=== PATIENT | female | born 1980 | race Caucasian/White ===

== ENCOUNTER → 2017-05-31 | Outpatient (CLI) | payer OTHER | LOC: M LRY 11:13 | DX: J40 Bronchitis, not specified as acute or chronic (principal) | CPT/HCPCS: G0463 ==

== ENCOUNTER → 2018-04-19 | Outpatient (REF) | payer OTHER | LOC: M SFHCLERA 14:59 | PROVIDERS: ATTEND Nurse Practitioner Family | DX: R42 Dizziness and giddiness (principal) ==

== ENCOUNTER 2018-12-12 08:32 | Emergency (ER) | payer OTHER ==
[~2018-12-12] VITALS: Ht 167.6 cm; Wt 109.1 kg
[2018-12-12] MEDS ORDERED: METF-839 PO (08:36)
[2018-12-12] MEDS ORDERED: ADACEL/BOOSTRIX VACCINE (DIPHTH/PERTUSS/ACELL/TETANUS)0.5ML SYR (90715) IM ONE (09:30)
--- NOTE | 2018-12-12 10:40 | REP ---
HISTORY: Pain. FINDINGS: The joint spaces are symmetric and relatively well maintained. There is no evidence of acute fracture or destructive osseous lesion. IMPRESSION: Negative. Electronically Signed by Riley Bee DO 12/12/2018 10:53 A
[2018-12-12 11:02] VITALS: BP 124/88
== END 2018-12-12 11:03 | disposition home or self-care (01) ==
LOC: M ED 08:32
DX: S60.512A Abrasion of left hand, initial encounter (principal); S60.222A Contusion of left hand, initial encounter; W22.8XXA Striking against or struck by other objects, initial encounter; Y92.099 Unspecified place in other non-institutional residence as the place of occurrence of the external cause; Y93.89 Activity, other specified; Y99.9 Unspecified external cause status; Z72.0 Tobacco use; Z79.899 Other long term (current) drug therapy

== ENCOUNTER 2019-03-28 02:23 | Emergency (ER) | payer OTHER ==
[~2019-03-28] VITALS: Ht 165.1 cm; Wt 109.1 kg
[~2019-03-28 02:23] MED LIST: METF-839 PO
[2019-03-28] MEDS ORDERED: SERT25TA21 (02:28)
[2019-03-28 03:06] VITALS: BP 150/86
[2019-03-28] MEDS ORDERED: KEFL500C17 PO (04:11)
[2019-03-28] MEDS ORDERED: CEPHALEXIN 500 MG CAP PO ONE (04:15)
== END 2019-03-28 04:42 | disposition home or self-care (01) ==
LOC: M ED 02:23
DX: L70.0 Acne vulgaris (principal); F17.200 Nicotine dependence, unspecified, uncomplicated; Z79.84 Long term (current) use of oral hypoglycemic drugs

== ENCOUNTER 2019-07-26 09:42 | Emergency (ER) | payer OTHER ==
[~2019-07-26] VITALS: Ht 165.1 cm; Wt 108.2 kg
[~2019-07-26 09:42] MED LIST changes: +KEFL500C17 PO; +SERT25TA21
--- NOTE | 2019-07-26 10:32 | REP ---
Clinical: Chest pain . Comparison: 05/31/2017 . Findings: The mediastinum and cardiac silhouette are stable and within normal limits for portable technique. The lung arana are clear without acute consolidation, effusion, or pneumothorax. Skeletal structures are intact. Impression: No acute cardiopulmonary process appreciated. Electronically Signed by Arun Castillo MD 07/26/2019 10:20 A
[2019-07-26 10:33] LABS: BASO # 0.1 10^3/uL (0.0-0.2); BASO % 0.6 % (0.0-1.0); EOS # 0.2 10^3/uL (0.0-0.5); EOS % 2.3 % (0.0-3.0); HEMATOCRIT 44.5 % (36.0-47.0); HEMOGLOBIN 14.7 g/dl (12.0-15.5); LYMPH # 2.9 10^3/uL (1.5-5.0); LYMPH % 33.5 % (24.0-44.0); MEAN CORPUSCULAR HEMOGLOBIN 31.6 pg (27.0-33.0); MEAN CORPUSCULAR VOLUME 95.7 fl (80.0-96.0); MONO # 0.7 10^3/uL (0.0-0.8); MONO % 7.7 % (0.0-5.0); NEUTROPHILS # 4.7 10^3/uL (1.5-8.5); NEUTROPHILS % 55.5 % (36.0-66.0); PLATELET COUNT, AUTOMATED 286 10^3/uL (150-450); RED BLOOD COUNT 4.65 10^6/uL (4.00-5.40); WHITE BLOOD COUNT 8.5 10^3/uL (4.0-10.0)
[2019-07-26 11:04] LABS: BLOOD UREA NITROGEN 7 MG/DL (7-18); CALCIUM LEVEL 9.5 MG/DL (8.5-10.1); CARBON DIOXIDE LEVEL 28 MEQ/L (21-32); CHLORIDE LEVEL 107 MEQ/L (98-107); CK-MB VALUE MASS < 1.0 NG/ML (<3.6); CPK CREATINE PHOSPHOKINASE 49 U/L (26-192); CREATININE FOR GFR 0.73 MG/DL (0.55-1.30); GLOMERULAR FILTRATION RATE > 60.0 (>58); GLUCOSE, FASTING 113 MG/DL (70-100); MB/CK RELATIVE INDEX 2.04 (< OR =4); POTASSIUM SERUM 3.9 MEQ/L (3.5-5.1); SODIUM LEVEL 138 MEQ/L (136-145); TROPONIN I < 0.02 NG/ML (< 0.10)
[2019-07-26 11:30] VITALS: BP 119/71
--- NOTE | 2019-07-27 05:28 | ECGEPIP ---
[facility] - ED Test Date: 2019-07-26 Pat Name: NARGIS PONCE Department: Room: - Gender: Female Otr Owner Operator Truck Driver: radha : 1980 Requested By: Jaxon Kimball Order Number: [id number] Reading MD: Jaxon Lopez Measurements Intervals [place] Rate: 80 P: 46 MA: 185 QRS: 13 QRSD: 80 T: 52 QT: 365 QTc: 422 Interpretive Statements SINUS RHYTHM POOR R WAVE PROGRESSION NO PRIORS FOR COMPARISON Electronically Signed on 07-27-2019 5:28:23 EDT by Jxaon Lopez
== END 2019-07-26 11:49 | disposition home or self-care (01) ==
LOC: M ED 09:42
DX: R07.89 Other chest pain (principal); E28.2 Polycystic ovarian syndrome; Z79.899 Other long term (current) drug therapy

== ENCOUNTER 2020-05-13 17:56 | Emergency (ER) | payer OTHER ==
[~2020-05-13] VITALS: Ht 165.1 cm; Wt 108.2 kg
[2020-05-13 17:57] VITALS: BP 152/79
[2020-05-13] MEDS ORDERED: predniSONE 20 MG TAB PO ONE (19:00)
[2020-05-13] MEDS ORDERED: METRCRM (19:09)
[2020-05-13] MEDS ORDERED: ATOR1TAB19 (19:09)
== END 2020-05-13 19:46 | disposition home or self-care (01) ==
LOC: M ED 17:56
DX: R21 Rash and other nonspecific skin eruption (principal); T37.8X5A Adverse effect of other specified systemic anti-infectives and antiparasitics, initial encounter; Y92.9 Unspecified place or not applicable; Y93.9 Activity, unspecified; E11.9 Type 2 diabetes mellitus without complications; E78.00 Pure hypercholesterolemia, unspecified; Z79.899 Other long term (current) drug therapy; Z88.1 Allergy status to other antibiotic agents

== ENCOUNTER 2020-07-05 17:58 | Emergency (ER) | payer OTHER ==
[~2020-07-05] VITALS: Ht 170.2 cm; Wt 110.0 kg
[~2020-07-05 17:58] MED LIST changes: +ATOR1TAB19; +METRCRM
[2020-07-05] MEDS ORDERED: PANTOPRAZOLE 40MG VIAL (C9113 PER 1) IV ONE (19:35)
[2020-07-05] MEDS ORDERED: GI COCKTAIL 50ML BTL(HYOSCYAMINE/MAALOX/LIDOCAINE VISCOUS)(1:3:1) PO ONE (19:35)
[2020-07-05 20:03] LABS: BASO % 0.5 % (0.0-1.0); EOS # 0.2 10^3/uL (0.0-0.5); EOS % 2.6 % (0.0-3.0); HEMATOCRIT 43.2 % (36.0-47.0); HEMOGLOBIN 13.8 g/dl (12.0-15.5); LYMPH # 2.8 10^3/uL (1.5-5.0); LYMPH % 32.5 % (24.0-44.0); MEAN CORPUSCULAR HEMOGLOBIN 30.7 pg (27.0-33.0); MEAN CORPUSCULAR HGB CONC 31.9 g/dl (32.0-36.5); MEAN CORPUSCULAR VOLUME 96.2 fl (80.0-96.0); MONO # 0.6 10^3/uL (0.0-0.8); MONO % 6.7 % (2.0-8.0); NEUTROPHILS # 4.9 10^3/uL (1.5-8.5); NEUTROPHILS % 57.3 % (36.0-66.0); PLATELET COUNT, AUTOMATED 277 10^3/uL (150-450); RED BLOOD COUNT 4.49 10^6/uL (4.00-5.40); WHITE BLOOD COUNT 8.6 10^3/uL (4.0-10.0)
[2020-07-05 20:23] LABS: ERYTHROCYTE SEDIMENTATION RATE 21 mm/hr (0-20)
[2020-07-05] MEDS ORDERED: ISOVUE-370 76% 100ML VIAL As Ordered ONE (21:02)
--- NOTE | 2020-07-05 22:27 | REPVR ---
PROCEDURE INFORMATION: Exam: CT Neck With Contrast Exam date and time: 07/05/2020 9:08 PM Age: 40 years old Clinical indication: Dysphagia / difficulty swallowing; Additional info: Dysphagia, feels airway narrowing, worsening TECHNIQUE: Imaging protocol: Computed tomography images of the neck with intravenous contrast. Radiation optimization: All CT scans at this facility use at least one of these dose optimization techniques: automated exposure control; mA and/or kV adjustment per patient size (includes targeted exams where dose is matched to clinical indication); or iterative reconstruction. Contrast material: ISOVUE 370; Contrast volume: 75 ml; Contrast route: INTRAVENOUS (IV); COMPARISON: No relevant prior studies available. FINDINGS: Pharynx: Unremarkable. Larynx: Unremarkable. Normal epiglottis. Retropharyngeal space: Unremarkable. Submandibular/Parotid glands: Unremarkable. Thyroid: Unremarkable. No enlarged or calcified nodules. Lymph nodes: No lymphadenopathy. Trachea: Unremarkable. Lungs: Unremarkable as visualized. Bones/joints: No acute osseus lesions or fractures. Soft tissues: Unremarkable. No significant soft tissue swelling. IMPRESSION: No acute findings in the soft tissues of the neck. Electronically signed by: Barak Belle On 07/05/2020 22:28:23 PM
[2020-07-05] MEDS ORDERED: OMEP1CAP73 PO (23:05)
[2020-07-05 23:16] VITALS: BP 133/85
== END 2020-07-05 23:23 | disposition home or self-care (01) ==
LOC: M ED 17:58
DX: R13.10 Dysphagia, unspecified (principal); E78.5 Hyperlipidemia, unspecified; Z88.1 Allergy status to other antibiotic agents
CPT/HCPCS: 70491; 80047; 85025; 85652; 86140; 96374; 99283; C9113; Q9967

== ENCOUNTER → 2020-07-13 | Outpatient (CLI) | payer OTHER ==
[~2020-07-13] MED LIST changes: +E-Z-GAS II EFFERVESCENT PACKET (SODIUM BICARB./CITRIC ACID/SIMETHICONE) As Ordered ONE; +E-Z-HD 98% w/w 340GM SUSP BTL As Ordered ONE; +E-Z-PAQUE 96% w/w SUSP 176GM BTL As Ordered ONE; +OMEP1CAP73 PO
--- NOTE | 2020-07-13 16:49 | REP ---
INDICATION: DYSPHAGIA. COMPARISON: None. TECHNIQUE: This procedure was performed under the direct supervision of . Images were reviewed with . Liquid barium and gas producing granules were given in the erect position as well as liquid barium in the prone oblique positions in order to perform a double contrast esophagram examination. 0.8 minutes of fluoro time was utilized for this procedure. 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 There is no change compared to a previous chest x-ray performed on 05/31/2017. The oral and pharyngeal stages of deglutition are unremarkable. Esophageal transport is prompt and efficient and there is no esophagitis, stricture or mucosal ring. There is a sliding-type hiatal hernia. Gastroesophageal reflux is not demonstrated on this examination. IMPRESSION: There is a sliding-type hiatal hernia. Otherwise, unremarkable double-contrast esophagram examination. <Electronically signed by Sina Ulrich > 07/13/20 1638 <Electronically signed by Pasquale Walsh > 07/13/20 1649
== END ==
LOC: M RAD 09:18
PROVIDERS: ATTEND Family Medicine
DX: K44.9 Diaphragmatic hernia without obstruction or gangrene (principal); R13.10 Dysphagia, unspecified

== ENCOUNTER 2020-08-13 19:39 | Emergency (ER) | payer OTHER ==
[~2020-08-13] VITALS: Ht 165.1 cm; Wt 108.0 kg
[~2020-08-13 19:39] MED LIST changes: -E-Z-GAS II EFFERVESCENT PACKET (SODIUM BICARB./CITRIC ACID/SIMETHICONE) As Ordered ONE; -E-Z-HD 98% w/w 340GM SUSP BTL As Ordered ONE; -E-Z-PAQUE 96% w/w SUSP 176GM BTL As Ordered ONE
[2020-08-13] MEDS ORDERED: HYDR-643 (19:51)
[2020-08-13] MEDS ORDERED: OMEP-218 (19:51)
[2020-08-13] MEDS ORDERED: ZOLP6.2517 (19:51)
[2020-08-13 22:11] LABS: BASO % 0.5 % (0.0-1.0); EOS # 0.2 10^3/uL (0.0-0.5); EOS % 2.6 % (0.0-3.0); HEMOGLOBIN 13.3 g/dl (12.0-15.5); LYMPH # 2.4 10^3/uL (1.5-5.0); MEAN CORPUSCULAR HEMOGLOBIN 31.1 pg (27.0-33.0); MEAN CORPUSCULAR HGB CONC 32.4 g/dl (32.0-36.5); MEAN CORPUSCULAR VOLUME 95.8 fl (80.0-96.0); MONO # 0.6 10^3/uL (0.0-0.8); MONO % 6.3 % (2.0-8.0); NEUTROPHILS # 5.4 10^3/uL (1.5-8.5); NEUTROPHILS % 62.4 % (36.0-66.0); PLATELET COUNT, AUTOMATED 257 10^3/uL (150-450); RED BLOOD COUNT 4.28 10^6/uL (4.00-5.40); WHITE BLOOD COUNT 8.7 10^3/uL (4.0-10.0)
[2020-08-13 22:42] LABS: BLOOD UREA NITROGEN 6 MG/DL (7-18); CALCIUM LEVEL 8.8 MG/DL (8.5-10.1); CARBON DIOXIDE LEVEL 28 MEQ/L (21-32); CHLORIDE LEVEL 107 MEQ/L (98-107); CREATININE FOR GFR 0.62 MG/DL (0.55-1.30); GLOMERULAR FILTRATION RATE > 60.0 (>58); GLUCOSE, FASTING 119 MG/DL (70-100); POTASSIUM SERUM 3.6 MEQ/L (3.5-5.1); SODIUM LEVEL 140 MEQ/L (136-145)
[2020-08-13 23:06] VITALS: BP 128/88
== END 2020-08-13 23:07 | disposition home or self-care (01) ==
LOC: M ED 19:39
DX: R09.89 Other specified symptoms and signs involving the circulatory and respiratory systems (principal); F41.9 Anxiety disorder, unspecified; F43.10 Post-traumatic stress disorder, unspecified; K21.9 Gastro-esophageal reflux disease without esophagitis; Z88.1 Allergy status to other antibiotic agents; Z79.899 Other long term (current) drug therapy

== ENCOUNTER 2020-09-10 10:49 | Day surgery (SDC) | payer OTHER ==
[~2020-09-10] VITALS: Ht 165.1 cm; Wt 107.5 kg
[~2020-09-10 10:49] MED LIST changes: +HYDR-643; +NS 1,000 ML IV ONE; +OMEP-218; +ZOLP6.2517
[2020-09-10] MEDS ORDERED: LIDOCAINE 2% MDV 20ML VIAL As Ordered ONE (11:22)
[2020-09-10] MEDS ORDERED: fentaNYL 100 MCG/2 ML INJECTION (J3010) As Ordered ONE (11:22)
[2020-09-10] MEDS ORDERED: propofoL 200 MG/20 ML VIAL As Ordered ONE ×2 (11:22→11:32)
--- NOTE | 2020-09-10 11:40 | ROOR ---
Patient Name: Masha Villanueva Procedure Date: 09/10/2020 11:19 AM Date of : 1980 Age: 40 Room: [facility] Gender: Female Note Status: Finalized Procedure: Upper Endoscopy + Biopsies Indications: Dysphagia, Heartburn Providers: Quentin Luevano MD Referring MD: CHELSEA TRAN MD Requesting Provider: Medicines: Monitored Anesthesia Care Complications: No immediate complications. Procedure: Pre-Anesthesia Assessment: - The heart rate, respiratory rate, oxygen saturations, blood pressure, adequacy of pulmonary ventilation, and response to care were monitored throughout the procedure. The Endoscope was introduced through the mouth, and advanced to the second part of duodenum. The upper GI endoscopy was accomplished without difficulty. The patient tolerated the procedure well. Findings: The Z-line was variable and was found 40 cm from the incisors. Multiple biopsies were obtained with cold forceps for evaluation to rule out Sparks's Esophagus randomly at the gastroesophageal junction. A small hiatal hernia was present. No other significant abnormalities were identified in a careful examination of the stomach. The exam of the duodenum was otherwise normal. Impression: - Z-line variable, 40 cm from the incisors. - Small hiatal hernia. - Multiple biopsies were obtained at the gastroesophageal junction. - The examination was otherwise normal. Recommendation: - Patient has a contact number available for emergencies. The signs and symptoms of potential delayed complications were discussed with the patient. Return to normal activities tomorrow. Written discharge instructions were provided to the patient. - High fiber diet. - Discharge patient to home. - Continue present medications. - Await pathology results. - Follow an antireflux regimen. - Telephone GI clinic for pathology results in 1 week. - The findings and recommendations were discussed with the patient's family. Procedure Code(s): --- Professional --- 97564, Esophagogastroduodenoscopy, flexible, transoral; with biopsy, single or multiple Diagnosis Code(s): --- Professional --- K22.8, Other specified diseases of esophagus K44.9, Diaphragmatic hernia without obstruction or gangrene R13.10, Dysphagia, unspecified R12, Heartburn CPT copyright 2019 [employer]. All rights reserved. The codes documented in this report are preliminary and upon ironworker helper shop review may be revised to meet current compliance requirements. Quentin Luevano MD Quentin Luevano MD 09/10/2020 11:40:22 AM Electronically signed by Quentin Luevano MD Number of Addenda: 0 Note Initiated On: 09/10/2020 11:19 AM Estimated Blood Loss: Estimated blood loss: none.
[2020-09-10 11:55] VITALS: BP 123/75
== END 2020-09-10 12:06 | disposition home or self-care (01) ==
LOC: M OPP 10:49
PROVIDERS: ATTEND Internal Medicine Gastroenterology
DX: K22.8 Other specified diseases of esophagus (principal); K44.9 Diaphragmatic hernia without obstruction or gangrene; R13.10 Dysphagia, unspecified; R12 Heartburn; F17.210 Nicotine dependence, cigarettes, uncomplicated; Z79.899 Other long term (current) drug therapy
CPT/HCPCS: 43239; 88305; J3010

== ENCOUNTER → 2021-10-02 | Outpatient (REF) ==
[~2021-10-02] MED LIST changes: -NS 1,000 ML IV ONE; +OMEP-173; -OMEP-218
== END ==
LOC: M LAB 15:35
PROVIDERS: ATTEND Nurse Practitioner Adult Health
DX: Z02.1 Encounter for pre-employment examination (principal)

== ENCOUNTER 2022-06-01 17:51 | Emergency (ER) | payer OTHER ==
[~2022-06-01] VITALS: Ht 165.1 cm; Wt 99.2 kg
[2022-06-01] MEDS ORDERED: NS 1,000 ML IV ONE (19:45)
[2022-06-01 19:58] LABS: BASO # 0.1 10^3/uL (0.0-0.2); BASO % 0.7 % (0.0-1.0); EOS # 0.2 10^3/uL (0.0-0.5); EOS % 2.2 % (0.0-3.0); HEMATOCRIT 45.6 % (36.0-47.0); LYMPH # 2.9 10^3/uL (1.5-5.0); MEAN CORPUSCULAR HEMOGLOBIN 32.1 pg (27.0-33.0); MEAN CORPUSCULAR HGB CONC 32.9 g/dl (32.0-36.5); MEAN CORPUSCULAR VOLUME 97.6 fl (80.0-96.0); MONO # 0.8 10^3/uL (0.0-0.8); MONO % 9.2 % (2.0-8.0); NEUTROPHILS # 4.2 10^3/uL (1.5-8.5); NEUTROPHILS % 51.7 % (36.0-66.0); PLATELET COUNT, AUTOMATED 363 10^3/uL (150-450); RED BLOOD COUNT 4.67 10^6/uL (4.00-5.40); WHITE BLOOD COUNT 8.1 10^3/uL (4.0-10.0)
[2022-06-01 20:10] LABS: APPEARANCE, URINE MANUAL CLEAR (CLEAR); COLOR, URINE MANUAL YELLOW (YELLOW); GLUCOSE, URINE (UA) MANUAL NEGATIVE (NEGATIVE); PROTEIN, URINE MANUAL NEGATIVE (NEGATIVE)
[2022-06-01 20:11] LABS: BILIRUBIN, URINE MANUAL NEGATIVE (NEGATIVE); BLOOD URINE MANUAL POSITIVE (NEGATIVE); KETONE, URINE MANUAL 2+ mg/dL (NEGATIVE); LEUKOCYTE ESTERASE, URINE MAN NEGATIVE (NEGATIVE); NITRITE, URINE MANUAL NEGATIVE (NEGATIVE); UROBILINOGEN, URINE MANUAL NORMAL (NORMAL)
[2022-06-01 20:18] LABS: HEMOGLOBIN A1c 5.2 % (4.0-6.0)
[2022-06-01 20:18] LABS: BACTERIA, URINE MOD AMOUNT; HYALINE CAST, URINE NONE SEEN /lpf (0-1); SQUAMOUS EPITHELIAL CELL URINE SMALL AMOUNT /hpf (SMALL AMT)
[2022-06-01 20:19] LABS: MAGNESIUM LEVEL 2.1 MG/DL (1.8-2.4)
[2022-06-01 20:23] LABS: FREE T4 1.14 NG/DL (0.89-1.76); THYROID STIMULATING HORMONE 4.237 uIU/ML (0.55-4.78)
[2022-06-01 21:20] VITALS: BP 136/86
== END 2022-06-01 21:23 | disposition home or self-care (01) ==
LOC: M ED 17:51
DX: R42 Dizziness and giddiness (principal); R00.2 Palpitations; R73.09 Other abnormal glucose; F17.200 Nicotine dependence, unspecified, uncomplicated; F12.10 Cannabis abuse, uncomplicated; Z79.899 Other long term (current) drug therapy; Z88.8 Allergy status to other drugs, medicaments and biological substances